=== PATIENT | male | born 1960 | race Two or more races ===

== ENCOUNTER → 2016-04-25 | Outpatient (CLI) | payer OTHER ==
--- NOTE | 2016-04-25 15:29 | MR ---
MRI of the Brain (Without Contrast) at 1448 hours Clinical Indications: R 50, worsening daily headaches Technique: T1-weighted images were acquired axially and sagittally from the foramen magnum to the ve rtex. Axial fast inversion recovery, fast T2-weighted, and diffusion-weighted axial images were obta ined without contrast. Findings: The ventricles, cisterns, and sulci are normal without atrophy, hydrocephalus, midline andressa ft, herniation, or epidural/subdural hematomas. No intracranial hemorrhage or masses. Diffusion-weigh bruce sequence demonstrates no acute infarct. Cerebellar tonsils are in normal position. Pituitary glan d is normal in size. Normal signal flow-void in the superior sagittal sinus, basilar artery, and bila teral internal carotid arteries indicating patency. Paranasal sinuses and mastoid air cells are clear . Impression: Normal MRI of the brain without contrast.
== END ==
LOC: FIMAGING 10:08
PROVIDERS: ATTEND Physician Assistant Medical
DX: R51 Headache (principal)